=== PATIENT | male | born 1975 | race Caucasian/White ===

== ENCOUNTER 2022-10-06 20:13 | Emergency (ER) | payer BC, OTHER ==
[2022-10-06] MEDS ORDERED: Bacitracin Oint 1 GM U/D Packet TOP ONE (20:54)
[2022-10-06] MEDS ORDERED: traMADol 50 MG Tab PO ONE (20:55)
[2022-10-06] MEDS ORDERED: Ketorolac 10 MG Tab PO ONE (20:55)
== END 2022-10-06 21:20 | disposition home or self-care (01) ==
LOC: LL.ED 20:13
DX: S01.01XA Laceration without foreign body of scalp, initial encounter (principal); I10 Essential (primary) hypertension; Z88.8 Allergy status to other drugs, medicaments and biological substances; Z79.899 Other long term (current) drug therapy; W22.8XXA Striking against or struck by other objects, initial encounter
CPT/HCPCS: 12004; 99283; A9270-GY